=== PATIENT | female | born 1975 | race Caucasian/White ===

== ENCOUNTER 2024-07-20 06:57 | Inpatient (IN) | payer MEDICAID ==
[~2024-07-20] VITALS: Ht 154.9 cm; Wt 73.5 kg
[~2024-07-20 06:57] MED LIST: LEVO100T9 PO
[2024-07-20] MEDS ORDERED: BUPIVACAINE HCL/PF 0.5% (5MG/ML) 10ML ONE (07:51)
[2024-07-20] MEDS ORDERED: LIDOCAINE HCL/EPINEPHRINE 1%-EPI 1:100,000 20ML VIAL ONE (07:51)
[2024-07-20] MEDS ORDERED: METHYLENE BLUE 50MG/10ML AMP IV ONE (07:51)
[2024-07-20 07:58] LABS: UCG SCREEN NEGATIVE
[2024-07-20] MEDS ORDERED: LACTATED RINGERS 1,000 ML IV SCH (08:00)
[2024-07-20] MEDS ORDERED: FENTANYL CITRATE/PF 50MCG/ML 2ML VIAL ONE (12:05)
[2024-07-20] MEDS ORDERED: MIDAZOLAM HCL 2 MG/2 ML VIAL ONE (12:06)
[2024-07-20] MEDS ORDERED: PROPOFOL 200MG/20ML VIAL IV ONE (12:07)
[2024-07-20] MEDS ORDERED: HYDROMORPHONE HCL/PF 2MG/ML INJ ONE (12:20)
[2024-07-20] MEDS ORDERED: LABETALOL 5MG/ML 4ML INJ IV PRN (12:30)
[2024-07-20] MEDS ORDERED: ONDANSETRON HCL 4MG/2ML INJ IV PRN (12:30)
[2024-07-20] MEDS ORDERED: MEPERIDINE HCL/PF 25MG/ML CPJ IV PRN (12:30)
[2024-07-20] MEDS: HYDROMORPHONE HCL/PF 1MG/ML INJ IV PRN (16:51)
[2024-07-20 17:20] VITALS: BP 124/71; PULSE 64; RESP 18; TEMP 36.4
[2024-07-20] MEDS: TRAMADOL 50MG TABLET PO PRN (18:44)
[2024-07-20] MEDS: ONDANSETRON HCL 4MG/2ML INJ IV PRN (19:13)
[2024-07-20 20:00] VITALS: BP 119/77; PULSE 81; RESP 18; TEMP 36.5; O2SAT 99
[2024-07-21] VITALS: BP 113/72; PULSE 85; RESP 18; TEMP 36.9; O2SAT 96
[2024-07-21] MEDS: METOCLOPRAMIDE HCL 10MG/2ML VIAL IV PRN (00:13)
[2024-07-21] MEDS: HYDROMORPHONE HCL/PF 2MG/ML INJ IV PRN (00:14)
[2024-07-21] MEDS: DEXT 5%/0.9% NACL 1,000 ML IV SCH (00:43)
[2024-07-21 04:00] VITALS: BP 111/69; PULSE 73; RESP 18; TEMP 37.1; O2SAT 96
[2024-07-21] MEDS: LEVOTHYROXINE SODIUM 100MCG TABLET PO SCH (06:53)
[2024-07-21 08:00] VITALS: BP 101/54; PULSE 77; RESP 17; TEMP 37; O2SAT 97
[2024-07-21 10:45] VITALS: BP 101/54; PULSE 77; TEMP 98.6; O2SAT 97
[2024-07-21 12:00] VITALS: BP 105/60; PULSE 70; RESP 16; TEMP 36.6; O2SAT 96
== END 2024-07-21 11:24 | disposition home or self-care (01) | DRG 362 ==
LOC: NM 06:57 → EDSTATUS 11:00 → MICUSO 17:34 → 6EST 17:50
PROVIDERS: ADMIT Surgery Surgical Oncology; ATTEND Surgery Surgical Oncology
PROC: 0HTU0ZZ Resection of Left Breast, Open Approach (ICD-10-PCS; principal; 2024-07-20)
PROC: 07B60ZX Excision of Left Axillary Lymphatic, Open Approach, Diagnostic (ICD-10-PCS; 2024-07-20)
DX: D05.12 Intraductal carcinoma in situ of left breast (principal); E03.9 Hypothyroidism, unspecified
CPT/HCPCS: 71045; 78195; 81025; 88305; J0665; J1171; J2004; J2250; J2405; J2704; J2765; J3010; J7042; Q9968